=== PATIENT | male | born 1965 | race Asian ===

== ENCOUNTER 2019-11-11 14:58 | Emergency (ER) | payer OTHER ==
[~2019-11-11] VITALS: Ht 170.2 cm; Wt 72.6 kg
[2019-11-11 15:04] VITALS: Ht 170.2 cm; Wt 72.6 kg
[2019-11-11 15:23] LABS: microscopic required? NO
[2019-11-11 15:29] LABS: urine erythrocyte NEGATIVE (NEGATIVE)
[2019-11-11 15:34] LABS: BASOPHIL % 0.6 % (0-2); PLATELET COUNT 228 x10^3mcL (130-400)
[2019-11-11 15:44] LABS: CALCIUM 9.4 mg/dL (8.5-10.1); CARBON DIOXIDE 28.3 mmol/L (21-32); CHLORIDE SERUM 97 mmol/L (98-107); CREATININE SERUM 1.3 mg/dL (0.7-1.3); GFR1 > 60 mL/min; GLUCOSE SERUM 108 mg/dL (74-106); POTASSIUM SERUM 3.6 mmol/L (3.5-5.1); SODIUM SERUM 134 mmol/L (136-145)
[2019-11-11 15:45] LABS: RED CELL DISTRIBUTION WIDTH 15.2 % (11.5-14.5)
[2019-11-11 15:49] LABS: ALBUMIN 4.4 g/dL (3.4-5.0); ALKALINE PHOSPHATASE 72 U/L (46-116); ALT/SGPT 47 U/L (16-63); AST/SGOT 31 U/L (15-37); BILIRUBIN TOTAL 1.1 mg/dL (0.20-1.00); TOTAL PROTEIN, SERUM 8.8 g/dL (6.4-8.2)
[2019-11-11 17:06] LABS: FREE T4 1.2 ng/dL (0.76-1.46); FREE THYROXINE INDEX 3.6 ug/dL (1.4-4.5); T4(THYROXINE) 9.7 ug/dL (4.7-13.3)
[2019-11-11 18:19] LABS: T3 TOTAL 1.02 ng/mL
[2019-11-11] MEDS ORDERED: ZYLOPRIM300 MG PO (18:46)
[2019-11-11] MEDS ORDERED: ZESTRIL10 MG PO (18:47)
[2019-11-11 20:05] LABS: AMPHETAMINE QUAL UR NONE DETECTED (See below)
[2019-11-11 21:28] VITALS: BP 138/76
== END 2019-11-11 21:20 | disposition home or self-care (01) ==
LOC: ED 14:58
PROVIDERS: Emergency Medicine
DX: R00.0 Tachycardia, unspecified (principal); R30.0 Dysuria; E86.0 Dehydration; I10 Essential (primary) hypertension
CPT/HCPCS: 84439; J0696; Q9967